=== PATIENT | male | born 1970 | race Caucasian/White ===

== ENCOUNTER 2017-03-29 07:48 | Inpatient (IN) | payer MEDICARE, OTHER ==
[~2017-03-29] VITALS: Ht 170.2 cm; Wt 95.3 kg
[2017-03-29 08:26] LABS: BASOPHIL 0.5 % (0-2); EOSINOPHIL 0.1 % (0-5); HCT 43.4 % (42.0-52.0); HGB 16.5 g/dl (13.2-18.0); LYMPHOCYTE 8.3 % (15-48); MCH 35.4 pg (25.0-31.0); MCV 93.1 fL (78.0-100.0); MONOCYTE 12.6 % (0-12); MPV 10.3 fL (6.0-9.5); NEUTROPHIL 78.5 % (41-80); PLT 453 K/uL (150-400); RBC 4.66 M/uL (4.70-6.00); RDW 14.1 % (11.5-14.0); WBC 28.1 K/uL (4.0-10.5)
[2017-03-29 08:39] LABS: BILIRUBIN 2+ mg/dL (NEGATIVE); BLOOD 1+ Ery/uL (NEGATIVE); COLOR YELLOW (YELLOW); GLUCOSE (U) 3+ mg/dL (NORMAL); KETONE (U) 3+ (LARGE) mg/dL (NEGATIVE); LEUKOCYTES NEGATIVE Leu/uL (NEGATIVE); NITRITE NEGATIVE (NEGATIVE); PROTEIN 2+ mg/dL (NEGATIVE); SPECIFIC GRAVITY 1.025 (1.001-1.030); UROBILINOGEN 0.2 mg/dL (0.2-1.0); pH 5.5 (5.0-9.0)
[2017-03-29 08:43] LABS: CLARITY HAZY (CLEAR)
[2017-03-29 08:45] LABS: INR 1.18 (0.9-1.2); PROTHROMBIN TIME 14.6 SECONDS (11.7-14.0); PTT 28.1 SECONDS (23.2-31.4)
[2017-03-29 08:45] LABS: SQUAMOUS EPITHELIAL CELLS RARE; URINARY RBC RARE; URINARY WBC RARE
[2017-03-29 09:30] LABS: ALBUMIN 4.6 g/dL (3.5-5.0); BILIRUBIN - TOTAL 0.2 mg/dL (0.1-1.0); GLOBULIN (CALCULATION) 3.8 g/dL (2.2-4.2); POTASSIUM 5.1 mmol/L (3.5-5.1); TOTAL PROTEIN 8.4 g/dL (6.4-8.3)
[2017-03-29 09:38] LABS: AMPHETAMINES NEGATIVE (NEGATIVE); BARBITURATES NEGATIVE (NEGATIVE); BENZODIAZEPINES NEGATIVE (NEGATIVE); COCAINE NEGATIVE (NEGATIVE); MARIJUANA (THC) NEGATIVE (NEGATIVE); METHADONE NEGATIVE (NEGATIVE); TRICYCLIC ANTIDEPRESSANT NEGATIVE (NEGATIVE)
[2017-03-29 13:43] LABS: CREATININE 0.7 mg/dL (0.7-1.2); MAGNESIUM 1.96 mg/dL (1.40-2.10); PHOSPHORUS 1.1 mg/dL (2.7-4.5); POTASSIUM 4.1 mmol/L (3.5-5.1)
[2017-03-29 17:37] LABS: CREATININE 0.5 mg/dL (0.7-1.2)
[2017-03-29 21:38] LABS: CREATININE 0.5 mg/dL (0.7-1.2); POTASSIUM 3.6 mmol/L (3.5-5.1)
[2017-03-30 01:17] LABS: CREATININE 0.4 mg/dL (0.7-1.2); POTASSIUM 3.8 mmol/L (3.5-5.1)
[2017-03-30 06:39] LABS: BASOPHIL 0.1 % (0-2); EOSINOPHIL 0.3 % (0-5); HCT 32.8 % (42.0-52.0); HGB 11.8 g/dl (13.2-18.0); LYMPHOCYTE 7.5 % (15-48); MCH 32.6 pg (25.0-31.0); MCV 90.6 fL (78.0-100.0); MONOCYTE 7.6 % (0-12); MPV 9.8 fL (6.0-9.5); NEUTROPHIL 84.5 % (41-80); PLT 227 K/uL (150-400); RBC 3.62 M/uL (4.70-6.00); RDW 14.4 % (11.5-14.0); WBC 10.3 K/uL (4.0-10.5)
[2017-03-30 07:12] LABS: ALBUMIN 2.9 g/dL (3.5-5.0); BILIRUBIN - TOTAL 0.3 mg/dL (0.1-1.0); CREATININE 0.4 mg/dL (0.7-1.2); GLOBULIN (CALCULATION) 3.7 g/dL (2.2-4.2); MAGNESIUM 1.84 mg/dL (1.40-2.10); PHOSPHORUS 1.5 mg/dL (2.7-4.5); POTASSIUM 3.8 mmol/L (3.5-5.1); TOTAL PROTEIN 6.6 g/dL (6.4-8.3)
[2017-03-30 11:49] LABS: CREATININE 0.5 mg/dL (0.7-1.2); POTASSIUM 3.6 mmol/L (3.5-5.1)
[2017-03-30 13:33] LABS: HCT 33.2 % (42.0-52.0); HGB 11.7 g/dl (13.2-18.0); MCH 32.1 pg (25.0-31.0); MCHC 35.2 g/dL (32.0-36.0); MPV 9.9 fL (6.0-9.5); RBC 3.65 M/uL (4.70-6.00); RDW 14.5 % (11.5-14.0); WBC 10.5 K/uL (4.0-10.5)
[2017-03-30 13:46] LABS: ALBUMIN 3.1 g/dL (3.5-5.0); BILIRUBIN - TOTAL 0.3 mg/dL (0.1-1.0); CREATININE 0.5 mg/dL (0.7-1.2); GLOBULIN (CALCULATION) 3.4 g/dL (2.2-4.2); POTASSIUM 3.6 mmol/L (3.5-5.1); TOTAL PROTEIN 6.5 g/dL (6.4-8.3)
[2017-03-30 19:15] LABS: CREATININE 0.5 mg/dL (0.7-1.2); POTASSIUM 3.2 mmol/L (3.5-5.1)
[2017-03-30 23:50] LABS: CREATININE 0.4 mg/dL (0.7-1.2); POTASSIUM 3.5 mmol/L (3.5-5.1)
[2017-03-31 04:49] LABS: HCT 30.8 % (42.0-52.0); HGB 10.8 g/dl (13.2-18.0); MCH 32.1 pg (25.0-31.0); MCHC 35.1 g/dL (32.0-36.0); MCV 91.7 fL (78.0-100.0); MPV 9.6 fL (6.0-9.5); RBC 3.36 M/uL (4.70-6.00); RDW 14.6 % (11.5-14.0); WBC 10.2 K/uL (4.0-10.5)
[2017-03-31 05:04] LABS: BILIRUBIN - TOTAL 0.3 mg/dL (0.1-1.0); CREATININE 0.4 mg/dL (0.7-1.2); GLOBULIN (CALCULATION) 3.4 g/dL (2.2-4.2); POTASSIUM 3.5 mmol/L (3.5-5.1); TOTAL PROTEIN 6.4 g/dL (6.4-8.3)
[2017-03-31 08:43] LABS: CREATININE 0.5 mg/dL (0.7-1.2); POTASSIUM 3.4 mmol/L (3.5-5.1)
[2017-04-01 07:06] LABS: HCT 29.2 % (42.0-52.0); MCH 31.3 pg (25.0-31.0); MCHC 33.9 g/dL (32.0-36.0); MCV 92.4 fL (78.0-100.0); MPV 9.6 fL (6.0-9.5); RBC 3.16 M/uL (4.70-6.00); RDW 14.6 % (11.5-14.0); WBC 7.8 K/uL (4.0-10.5)
[2017-04-01 07:11] LABS: HGB 9.9 g/dl (13.2-18.0)
[2017-04-01 07:41] LABS: BILIRUBIN - TOTAL 0.3 mg/dL (0.1-1.0); CREATININE 0.5 mg/dL (0.7-1.2)
== END 2017-04-01 14:39 | disposition home or self-care (01) | DRG 638 ==
LOC: FER 07:48 → FICU 10:10 → FMS 03-31 15:00
PROVIDERS: Emergency Medicine; Internal Medicine; ADMIT Internal Medicine
DX: E10.10 Type 1 diabetes mellitus with ketoacidosis without coma (principal); R65.10 Systemic inflammatory response syndrome (SIRS) of non-infectious origin without acute organ dysfunction; E10.40 Type 1 diabetes mellitus with diabetic neuropathy, unspecified; I10 Essential (primary) hypertension; E78.5 Hyperlipidemia, unspecified; M51.36 Other intervertebral disc degeneration, lumbar region; G47.33 Obstructive sleep apnea (adult) (pediatric); F32.9 Major depressive disorder, single episode, unspecified; Z86.711 Personal history of pulmonary embolism; Z91.14 Patient's other noncompliance with medication regimen; Z79.899 Other long term (current) drug therapy; Z79.01 Long term (current) use of anticoagulants; Z79.4 Long term (current) use of insulin; Z88.6 Allergy status to analgesic agent
CPT/HCPCS: 36415; 36600; 71101; 80048; 80053; 80305; 81001; 82009; 82150; 82550; 82803; 82947; 82962; 83036; 83690; 83735; 84100; 84145; 84484; 85025; 85610; 85730; 87040; 93005; 96374; C9113; J0456; J1815; J2405

== ENCOUNTER 2021-05-21 15:55 | Emergency (ER) | payer MEDICARE, OTHER ==
[~2021-05-21 15:55] MED LIST: AUGMENTIN 875-1 EACH PO; BUSPAR5 MG PO; CIPROFLOXACIN AS; FENOFIBRATE160 MG PO; FLUOXETINE HCL10 MG PO; FUROSEMIDE 20MG20 MG PO; HUMALOG 75100 UNIT/M SUBD; HYDROCORTISONE AS; INVOKANA300 MG PO; JENTADUETO 2.51 EAC1 PO; KLOR-CON M2020 MEQ PO; LEVEMIR DO100 UNITS/ SUBD; LEVEMIR VI100 UNITS/ SUBD; LIPITOR 10MG TA10 MG PO; LISINOPRIL 10MG10 MG PO; LOVAZA1 GM PO; NUCYNTA100 MG PO; PROTONIX 40MG T40 MG PO; TOUJEO MAX300 UNIT/1 SC; XARELTO20 MG PO; ZANTAC150 MG PO; [UNRECOGNIZED DRUG - OTHER] AS
== END 2021-05-21 18:16 | disposition left against medical advice (07) ==
LOC: FER 15:55
DX: Z53.8 Procedure and treatment not carried out for other reasons (principal)
CPT/HCPCS: 93005

== ENCOUNTER 2021-10-02 17:06 | Emergency (ER) | payer MEDICARE, OTHER | END 2021-10-02 19:43 | disposition home or self-care (01) | LOC: FER 17:06 | DX: M25.571 Pain in right ankle and joints of right foot (principal); G89.29 Other chronic pain; E11.40 Type 2 diabetes mellitus with diabetic neuropathy, unspecified; Z79.4 Long term (current) use of insulin; Z88.5 Allergy status to narcotic agent; Z88.6 Allergy status to analgesic agent | CPT/HCPCS: 99283 ==

== ENCOUNTER → 2021-12-31 | Day surgery (SDC) | payer MEDICARE, OTHER ==
[~2021-12-31] VITALS: Ht 172.7 cm; Wt 79.4 kg
[~2021-12-31] MED LIST changes: +INSULIN LI100 UNIT/2 IJ; +KLOR-CON M 1010 MEQ PO; +NORVASC5 MG PO; +OZEMPIC1 MG/0.71 IJ; +PRINIVIL20 MG PO; +TAMSULOSIN HCL0.4 MG PO
[2021-12-31 09:22] LABS: HCT 37.4 % (42.0-52.0); HGB 13.5 g/dl (13.2-18.0); MCH 32.3 pg (25.0-31.0); MCHC 36.1 g/dL (32.0-36.0); MCV 89.5 fL (78.0-100.0); MPV 9.9 fL (6.0-9.5); RBC 4.18 M/uL (4.70-6.00); RDW 12.4 % (11.5-14.0); WBC 8.1 K/uL (4.0-10.5)
[2021-12-31 09:36] LABS: ALBUMIN 3.6 g/dL (3.4-5.0); BILIRUBIN - TOTAL 0.2 mg/dL (0.2-1.0); BUN/CREAT RATIO (CALC) 25.5 RATIO; CREATININE 0.47 mg/dL (0.67-1.17); GLOBULIN (CALCULATION) 4.1 g/dL; POTASSIUM 3.4 mmol/L (3.5-5.1); TOTAL PROTEIN 7.7 g/dL (6.4-8.2)
== END | disposition home or self-care (01) ==
LOC: FAS 08:47
PROVIDERS: Surgery
DX: K29.70 Gastritis, unspecified, without bleeding (principal); K21.9 Gastro-esophageal reflux disease without esophagitis; I10 Essential (primary) hypertension; E11.9 Type 2 diabetes mellitus without complications; Z79.01 Long term (current) use of anticoagulants; Z79.4 Long term (current) use of insulin; Z79.899 Other long term (current) drug therapy; Z88.5 Allergy status to narcotic agent; Z88.6 Allergy status to analgesic agent; Z91.041 Radiographic dye allergy status
CPT/HCPCS: 36415; 80053; J2250; J2704; J7120